=== PATIENT | female | born 1935 | race American Indian/Alaskan Native ===

== ENCOUNTER 2017-05-06 09:14 | Outpatient (CLI) | payer MEDICARE ==
[2017-05-06 14:18] LABS: Uric Acid 5.2 mg/dL (3.5-7.6)
[2017-05-09 14:50] LABS: Vitamin D, 25-OH, Total 24 ng/mL (30-100)
== END 2017-05-06 09:15 | disposition home or self-care (01) ==
LOC: LABHHL 09:14
PROVIDERS: ATTEND Internal Medicine
DX: E11.65 Type 2 diabetes mellitus with hyperglycemia (principal); I10 Essential (primary) hypertension; M81.8 Other osteoporosis without current pathological fracture; E55.9 Vitamin D deficiency, unspecified; I25.10 Atherosclerotic heart disease of native coronary artery without angina pectoris; Z79.899 Other long term (current) drug therapy
CPT/HCPCS: 36415; 80061; 82306; 83036; 84550

== ENCOUNTER 2019-04-13 08:58 | Outpatient (CLI) | payer MEDICARE ==
[2019-04-13 10:43] LABS: Chol/HDL Ratio 3.05 %
[2019-04-15 15:47] LABS: Vitamin D, 25-OH, D2 <4 ng/mL
== END 2019-04-13 08:59 | disposition home or self-care (01) ==
LOC: LAB 08:58
PROVIDERS: ATTEND Internal Medicine
DX: E11.65 Type 2 diabetes mellitus with hyperglycemia (principal); E55.9 Vitamin D deficiency, unspecified; E78.5 Hyperlipidemia, unspecified; E87.1 Hypo-osmolality and hyponatremia
CPT/HCPCS: 36415; 80061; 82306; 83036

== ENCOUNTER 2019-07-27 09:09 | Outpatient (CLI) | payer MEDICARE ==
[2019-07-27 10:28] LABS: BUN/Creatinine Ratio 16; Blood Urea Nitrogen 11 mg/dL (7-17); Calcium 10.1 mg/dL (8.4-10.2); Chol/HDL Ratio 3.27 %; HDL Cholesterol 55 mg/dL (40-59); Hemolysis Index 1; LDL Cholesterol,Direct 116 mg/dL (50-130); Uric Acid 4.6 mg/dL (3.5-7.6)
== END 2019-07-27 09:10 | disposition home or self-care (01) ==
LOC: LAB 09:09
PROVIDERS: ATTEND Internal Medicine
DX: E11.65 Type 2 diabetes mellitus with hyperglycemia (principal); E78.5 Hyperlipidemia, unspecified; M10.9 Gout, unspecified
CPT/HCPCS: 36415; 80048; 80061; 83036; 84550

== ENCOUNTER 2019-12-15 10:42 | Outpatient (CLI) | payer MEDICARE ==
[2019-12-15 12:24] LABS: Basophils % (Auto) 0.8 % (0.0-1.8); Eosinophils # (Auto) 0.1 K/mm3 (0.0-0.4); Eosinophils % (Auto) 1.9 % (0.0-4.3); Hematocrit 39.9 % (30.3-42.9); Hemoglobin 12.7 gm/dl (10.1-14.3); Lymphocytes # (Auto) 1.6 K/mm3 (1.2-5.4); Lymphocytes % (Auto) 27.4 % (13.4-35.0); Mean Corpuscular HGB Conc 32 % (30-34); Mean Corpuscular Volume 91 fl (79-97); Monocytes # (Auto) 0.4 K/mm3 (0.0-0.8); Monocytes % (Auto) 7.4 % (0.0-7.3); Platelet Count 257 K/mm3 (140-440); Red Blood Count 4.38 M/mm3 (3.65-5.03); Red Cell Distribution Width 15.9 % (13.2-15.2)
[2019-12-15 12:30] LABS: Bilirubin,Urine NEG (Negative); Blood,Urine SM (Negative); Color,Urine Yellow (Yellow); Hyaline Casts,Urine 3 /LPF; Mucus,Urine FEW /HPF; Protein,Urine <15 mg/dL mg/dL (Negative); Urobilinogen,Urine < 2.0 mg/dL (<2.0)
[2019-12-15 12:43] LABS: Alanine Aminotransferase 9 units/L (7-56); Albumin 4.5 g/dL (3.9-5); BUN/Creatinine Ratio 22; Blood Urea Nitrogen 13 mg/dL (7-17); Chol/HDL Ratio 2.68 %; HDL Cholesterol 66 mg/dL (40-59); Hemolysis Index 21; LDL Cholesterol,Direct 97 mg/dL (50-130)
== END 2019-12-15 10:43 | disposition home or self-care (01) ==
LOC: LAB 10:42
PROVIDERS: ATTEND Internal Medicine
DX: E11.65 Type 2 diabetes mellitus with hyperglycemia (principal); E78.5 Hyperlipidemia, unspecified
CPT/HCPCS: 36415; 80053; 80061; 81001; 82306; 82607; 83036; 84443; 85025